=== PATIENT | female | born 1955 | race Caucasian/White ===

== ENCOUNTER 2017-03-11 09:07 | Inpatient (IN) | payer MEDICARE, OTHER ==
[2017-03-10 16:12] LABS: HEMOGLOBIN 14.7 g/dL (12.0-16.0)
[2017-03-10 16:14] LABS: HEMATOCRIT 43.6 % (36.0-48.0)
[2017-03-10 16:22] LABS: BUN (BLOOD UREA NITROGEN) 12 MG/DL (6-23); CHLORIDE, SERUM 107 MMOL/L (96-112); CREATININE 0.96 MG/DL (0.55-1.02); GFR AFRICAN AMERICAN 73 ML/MIN (>=60); GFR NON AFRICAN AMERICAN 63 ML/MIN (>=60); GLUCOSE, SERUM 89 MG/DL (60-99); POTASSIUM, SERUM 4.1 MMOL/L (3.5-5.3); SODIUM, SERUM 139 MMOL/L (135-148)
[2017-03-10 16:23] LABS: CO2 (CARBON DIOXIDE) 28 MMOL/L (24-34)
--- NOTE | ~2017-03-11 | OP ---
Record Of Operation [facility] [address] [place]. 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 PROCEDURE: 1. Ultrasound-guided percutaneous access, right common femoral artery. 2. Arch aortogram. 3. Selective catheterization of the right subclavian and right carotid arteries. 4. Primary stent placement in the innominate artery (7 mm x 19 mm Express SD stent). SURGEON: Alexsandra Estrada M.D. CASE MONITOR: Isai. ANESTHESIA: Local with MAC. ESTIMATED BLOOD LOSS: 20 mL. CONTRAST: 67 mL. IV FLUIDS: 400 mL. COMPLICATIONS: None. INDICATION: Ms Khoury is a pleasant, 61-year-old female with right upper extremity ischemic symptoms and was found on preoperative CT angiogram to have a high-grade innominate stenosis. The stenosis is felt to be greater than 80%. Due to surgical accessibility, she was recommended for arteriogram and possible stent placement. DETAILS OF PROCEDURE: After informed consent was obtained, the patient was brought to the endovascular suite and placed in supine position. After administration of IV sedation, she was prepped and draped in usual sterile fashion. A time-out was performed. I commenced the procedure with ultrasound-guided percutaneous access of the right common femoral artery. This was done after anesthetizing the right groin with local anesthetic. A permanent image of the artery documenting patency was saved and stored in the patient's chart. I accessed with the micropuncture needle, passed the micropuncture wire, confirmed intra-arterial under fluoroscopy. Then, I placed a micropuncture sheath. I then upsized to a 5-Lebanese sheath over a Bentson wire. I advanced the Bentson wire and universal flush catheter into the aortic arch. Arch aortogram was performed, which showed a patent nonaneurysmal aortic arch. It is a type 1 arch. There was a bovine like configuration of the shared origin of the innominate and left common carotid artery. The origins of the left common carotid artery Record Of Operation [facility] [address] [place]. [address] NAME: JENNIFER KHOURY : 53 STATUS : ADM IN PAT#: [id number] AGE: 61 ADM/REG DATE : 03/11/17 MR#: [id number] REPORT SERV DATE: 03/11/17 DICTATED BY: ALEXSANDRA ESTRADA DATE: 03/11/17 REPORT STATUS : Draft TRANSCRIBED BY: MODL DATE: 03/11/17 and left subclavian artery widely patent. There was a high-grade greater than 80% stenosis in the innominate at the origin. The subclavian and common carotid arteries fill normally distally. After that, we systemically heparinized. I replaced the Glidewire. I then used a lesly 2 and Glidewire to engage the innominate and then the right subclavian artery. With the Glidewire and subclavian artery, I brought a 7 x 90 sheath up to the origin of the innominate artery over the Glidewire. I then, with a catheter, exchanged the Glidewire for a V-18 wire out into the subclavian artery. I then using a lesly 2 and a Glidewire advanced into the common carotid artery. Through the lesly 2, I deployed a 6 mm Spider filter into the common carotid artery. With the distal embolic protection in place, I then advanced an Express SD over the filter wire, this is a 7 mm x 19 mm express SD. This was deployed in the innominate origin taking care not to disturb the origin of left common carotid artery. The stent was deployed in perfect position. Repeat contrast injection shows the stent to be widely patent with no residual stenosis. There was no impingement of flow on the common carotid artery. Satisfied with that, the filter was retrieved. There was small amount of embolic debris within the filter upon inspection outside the body. However, repeat contrast injection distally shows good flow into the subclavian and the carotid arteries. V-18 was removed. I then replaced the Bentson wire and pulled the sheath back over the Bentson wire into the right external iliac artery. Right femoral artery arteriogram shows a puncture site in the mid common femoral artery. A ProGlide closure device was deployed uneventfully. The patient tolerated the procedure well with no complications. I was present and participated this entire case as dictated. The patient remained neurologically intact and cooperative throughout the procedure. MARLY/NEMO Alexsandra Estrada M.D. / [id number] CC: Bill Mann M.D.
[~2017-03-11 09:07] MED LIST: ASAB PO; CLIMARA0.1 MG TOP; DITRO5 PO; EFFEXOR XR150 MG PO; EFFEXXR75 PO; LIPITOR40 PO; MEVACOR40 MG PO; MINIVELLE1 EAC1 TOP; PROAIR HFA INH; RANITIDINE300 MG PO; SEROQUEL200 MG PO; SEROQUEL400 MG PO; STOOL SOFTEN100 MG PO; SYN.05 PO; ZANTAC300 MG PO
[2017-03-12 03:25] LABS: BASOPHILS 0.3 %; BASOPHILS ABSOLUTE 0.02 10/3/uL (0.0-0.16); EOSINOPHILS 1.1 %; EOSINOPHILS ABSOLUTE 0.07 10/3/uL (0.0-0.53); HEMATOCRIT 37.5 % (36.0-48.0); HEMOGLOBIN 12.7 g/dL (12.0-16.0); IMMATURE GRANULOCYTES 0.2 %; IMMATURE GRANULOCYTES ABSOLUTE 0.01 10/3/uL (0.0-0.11); LYMPHOCYTES 44.3 %; MANUAL DIFF NO %; MEAN CORPUS HGB CONC 33.9 g/dL (32.0-36.0); MEAN CORPUSCULAR HEMOGLOB 32.5 pg (26.0-34.0); MEAN CORPUSCULAR VOLUME 95.9 fL (80-100); MEAN PLATELET VOLUME 9.4 fL (9.2-13.0); MONOCYTES 5.7 %; MONOCYTES ABSOLUTE 0.35 10/3/uL (0.21-1.20); NEUTROPHILS 48.4 %; NEUTROPHILS ABSOLUTE 2.94 10/3/uL (2.02-8.40); PLATELET COUNT 244 10/3/uL (150-400); RBC DISTRIBUTION WIDTH 14.2 % (12.0-16.0); RED CELL COUNT 3.91 10/6/uL (4.0-5.6); WHITE BLOOD CELLS 6.1 10/3/uL (4.5-10.5)
[2017-03-12 03:38] LABS: BUN (BLOOD UREA NITROGEN) 13 MG/DL (6-23); CALCIUM, SERUM 8.8 MG/DL (8.5-10.4); CHLORIDE, SERUM 107 MMOL/L (96-112); CO2 (CARBON DIOXIDE) 26 MMOL/L (24-34); CREATININE 0.92 MG/DL (0.55-1.02); GFR AFRICAN AMERICAN 77 ML/MIN (>=60); GFR NON AFRICAN AMERICAN 67 ML/MIN (>=60); POTASSIUM, SERUM 3.7 MMOL/L (3.5-5.3); SODIUM, SERUM 137 MMOL/L (135-148)
[2017-03-12 03:39] LABS: GLUCOSE, SERUM 107 MG/DL (60-99)
[2017-03-12] MEDS ORDERED: PLAVIX PO (11:02)
== END 2017-03-12 12:45 | disposition home or self-care (01) | DRG 254 ==
LOC: SDC 09:07 → SDC/OF 12:55 → CVICU 15:56
PROVIDERS: Surgery
PROC: 03723DZ Dilation of Innominate Artery with Intraluminal Device, Percutaneous Approach (ICD-10-PCS; principal; 2017-03-11 11:45)
DX: I77.1 Stricture of artery (principal); I10 Essential (primary) hypertension; J44.9 Chronic obstructive pulmonary disease, unspecified; E78.00 Pure hypercholesterolemia, unspecified; F31.9 Bipolar disorder, unspecified; E03.9 Hypothyroidism, unspecified
CPT/HCPCS: 36221; 37236; 76937; 80048; 83735; 85014; 85018; 85025; 93005; A9270-GY; C1760; C1769; C1876; C1884; C1894; J0690; J2250; J3010; Q9967